=== PATIENT | female | born 1965 ===

== ENCOUNTER 2021-05-11 21:00 | Emergency (ER) | payer OTHER ==
[~2021-05-11] VITALS: Ht 167.6 cm; Wt 66.7 kg
[2021-05-11 21:06] VITALS: BP 134/78
[2021-05-11] MEDS ORDERED: LIDOCAINE-MPF 1%, 5ML INFIL ONE (22:30)
== END 2021-05-12 01:28 | disposition left against medical advice (07) ==
LOC: ED 21:30
DX: S61.213A Laceration without foreign body of left middle finger without damage to nail, initial encounter (principal); W26.9XXA Contact with unspecified sharp object(s), initial encounter; Y93.89 Activity, other specified; Y92.89 Other specified places as the place of occurrence of the external cause; Y99.8 Other external cause status
CPT/HCPCS: 99281